=== PATIENT | female | born 1990 | race Caucasian/White ===

== ENCOUNTER 2020-12-07 23:08 | Emergency (ER) | payer MEDICAID, SELFPAY ==
[2020-12-07 23:55] VITALS: BP 142/82; PULSE 85; RESP 18; TEMP 36.7; O2SAT 96; BMI 40.6
--- NOTE | 2020-12-08 02:10 | PC.NURSE ---
Pt alert and oriented x4, calm and cooperative. Pt had bug in a jar stating she was bit by a bug. Small pink scratch michelle noted to abdomen, no bumps present. Pt left ER without being seen by provider.
== END 2020-12-08 02:15 | disposition left against medical advice (07) ==
PROVIDERS: Emergency Provider Emergency Medicine
DX: S30.861A Insect bite (nonvenomous) of abdominal wall, initial encounter (principal); W57.XXXA Bitten or stung by nonvenomous insect and other nonvenomous arthropods, initial encounter; Y93.9 Activity, unspecified; Y92.9 Unspecified place or not applicable; Y99.9 Unspecified external cause status
CPT/HCPCS: 99281; 99284